=== PATIENT | female | born 1980 | race Caucasian/White ===

== ENCOUNTER 2016-05-30 14:33 | Emergency (ER) | payer OTHER ==
[~2016-05-30] VITALS: Ht 165.1 cm; Wt 76.4 kg
[2016-05-30 16:50] VITALS: BP 130/79
== END 2016-05-30 16:50 | disposition home or self-care (01) ==
LOC: ED 14:33
DX: S00.85XA Superficial foreign body of other part of head, initial encounter (principal); Z88.8 Allergy status to other drugs, medicaments and biological substances
CPT/HCPCS: J2001

== ENCOUNTER 2017-06-19 14:29 | Emergency (ER) | payer OTHER ==
[~2017-06-19] VITALS: Ht 165.1 cm; Wt 62.6 kg
[2017-06-19 14:47] VITALS: Ht 165.1 cm; Wt 62.6 kg
[2017-06-19 17:24] LABS: BASOPHIL % 0.3 % (0-2); PLATELET COUNT 299 x10^3mcL (130-400); RED CELL DISTRIBUTION WIDTH 12.9 % (11.5-14.5)
[2017-06-19 19:39] VITALS: BP 120/69
== END 2017-06-19 19:39 | disposition home or self-care (01) ==
LOC: ED 14:29
PROVIDERS: Emergency Medicine
DX: S30.1XXA Contusion of abdominal wall, initial encounter (principal); Z91.041 Radiographic dye allergy status; M54.5 Low back pain; M54.2 Cervicalgia; V89.2XXA Person injured in unspecified motor-vehicle accident, traffic, initial encounter; Y93.89 Activity, other specified; Y92.89 Other specified places as the place of occurrence of the external cause; Y99.8 Other external cause status
CPT/HCPCS: 36415; J1885